=== PATIENT | male | born 1930 | race Asian ===

== ENCOUNTER 2017-10-02 20:00 | Inpatient (IN) | payer MEDICARE, MEDICAID ==
[~2017-10-02] VITALS: Ht 160 cm; Wt 66.9 kg
--- NOTE | 2017-10-02 20:15 | NUR ---
GPS NOTE. RECEIVED PT. DIRECTLY FROM [facility]. PT. ARRIVED ON THE UNIT AT 2014 VIA STRETCHER. PATIENT ADMITTED ON A 5150 HOLD DUE TO GD AND DTO. PER HOLD PT. WAS DISORGONAIZED, CONFUSED AND AGITATED, EXHIBITING UNUSUAL BEHAVIORS. THE 5150 WAS RECEIVED AND THE DOCUMENTATION APPEARS TO REFLECT THE PRESENTATION OF THE PATIENT. PATIENT IS CURRENTLY LAYING IN BED AWAKE, HAS NO S/S OE COMPLAINTS OF PAIN AT THIS TIME. NO SIGNS OF ACUTE DISTRESS NOTED AT THIS TIME. PATIENT'S BREATHING IS UNLABORED WITH EQUAL FALL AND RISE OF THE CHEST. PATIENT IS ORIENTED X1 ON ROOM AIR. PATIENT HAS BEEN ASSISTED WITH TURNING AND REPOSITIONING Q2HRS AND PRN FOR COMFORT AND CIRCULATION. THE PATIENT IS NOTED TO BE DEPRESSED, WITHDRAWN, DISORGANIZED, AGITATED AND ANXIOUS AT THIS TIME. UNABLE TO ASSESS SI/HI DUE TO LANGUAGE BARRIER. PT. REFUSED SKIN ASSESSMENT BUT A SIGNIFIVCANT BRUISE IS NOTED ON THE R SIDE OF PT'S FACE, A BANDAGE IS ALSO COVERING THE PT'S L KNEE. THE PATIENT IS UNDER THE CARE OF DR. PRADO AND THE MEDICAL CARE OF DR. REYNOSO. THE PATIENT'S BELONGING WERE INVENTORIED AND CHECKED FOR CONTRABANDS. PATIENT'S ADVANCED DIRECTIVE PREFERENCES, IMMUNIZATIONS QUESTIONNAIRE AND NECESSARY PAPERWORK ARE COMPLETED AND PLACED IN THE PT'S CHART. PATIENT WAS ORIENTED TO THE ROOM, FLOOR AND STAFF. EDUCATED PT. ON THE USAGE OF THE CALL MAYNARD. BED IS LOCKED AND LOW, BEDSIDES RAILS ARE UP X2 FOR SAFETY. WILL CONTINUE TO MONITOR Q15MNS, WITH THE HELP OF STAFF, FOR SAFETY.
[2017-10-02] MEDS ORDERED: MAG HYDROX/AL HYDROX/SIMETH 30 ML UDC PO PRN (21:30)
[2017-10-02] MEDS ORDERED: ACETAMINOPHEN 325 MG TABLET PO PRN (21:30)
[2017-10-02] MEDS ORDERED: MAGNESIUM HYDROXIDE 30 ML UDC PO PRN (21:30)
[2017-10-02] MEDS ORDERED: TEMAZEPAM 7.5 MG CAPSULE PO PRN (23:30)
[2017-10-02] MEDS ORDERED: LORAZEPAM 0.5 MG TABLET PO PRN (23:30)
[2017-10-03] MEDS ORDERED: ALLO300T2 PO (02:22)
[2017-10-03] MEDS ORDERED: COLC0.6C3 PO (02:22)
[2017-10-03] MEDS ORDERED: TAMS0.4C34 PO (02:22)
[2017-10-03] MEDS ORDERED: HYDR-552 PO (02:22)
[2017-10-03] MEDS ORDERED: INSU100V SQ (02:22)
[2017-10-03] MEDS ORDERED: HYDR-4075 PO (02:22)
[2017-10-03] MEDS ORDERED: AMIT50TA3 PO (02:22)
[2017-10-03] MEDS ORDERED: LOSA50TA21 PO (02:22)
[2017-10-03 08:00] VITALS: BP 145/92
[2017-10-03 09:01] LABS: ALANINE AMINOTRANSFERASE 49 U/L (12-78); ALBUMIN 3.7 g/dL (3.4-5.0); ALKALINE PHOSPHATASE 104 U/L (46-116); ASPARTATE AMINOTRANSFERASE 34 U/L (15-37); CARBON DIOXIDE 22 mmol/L (21-32); CHLORIDE 104 mmol/L (98-107); CREATININE 1.3 mg/dL (0.6-1.3); GLUCOSE 173 mg/dL (74-106); POTASSIUM 3.9 mmol/L (3.5-5.1); SODIUM SERUM 136 mmol/L (136-145); UREA NITROGEN, BLOOD 23 mg/dL (7-18)
[2017-10-03 09:04] LABS: CHOLESTEROL 113 mg/dL (<200); HDL CHOLESTEROL 39 mg/dL (40-60); LDL 68 mg/dL (0-99); TRIGLYCERIDES 102 mg/dL (30-150)
[2017-10-03] MEDS ORDERED: DEXTROSE 50%-WATER 50 ML DISP.SYRIN IV PRN (15:30)
[2017-10-03 16:00] VITALS: BP 134/83
[2017-10-03] MEDS: BLOOD SUGAR DIAGNOSTIC 1 EACH STRIP IN SCH ×2 (17:27→21:57)
[2017-10-03 20:23] VITALS: BP 144/90
[2017-10-03] MEDS: HALOPERIDOL 1 MG TABLET PO SCH (20:32)
[2017-10-03] MEDS: RIVASTIGMINE TARTRATE 1.5 MG CAPSULE PO SCH (20:32)
[2017-10-04 08:00] VITALS: BP 132/74
[2017-10-04] MEDS: RIVASTIGMINE TARTRATE 1.5 MG CAPSULE PO SCH ×2 (08:34→16:37)
[2017-10-04] MEDS: HALOPERIDOL 1 MG TABLET PO SCH ×3 (08:34→16:37)
[2017-10-04] MEDS: BLOOD SUGAR DIAGNOSTIC 1 EACH STRIP IN SCH ×4 (08:34→21:46)
--- NOTE | 2017-10-04 15:23 | NUR ---
SW attempted to use the [email or web address] phone (chef kitchen manager phone) to communicate with the pt but he was so confused and disoriented that the SW was unable to attain any information for the assessment.
[2017-10-04 16:12] VITALS: BP 129/80
--- NOTE | 2017-10-04 16:30 | NUR ---
GPS/RN DR RAMIREZ AWARE OF NEED TO RECONCILE MEDS IN SYSTEM.
--- NOTE | 2017-10-04 18:16 | NUR ---
GPS/RN BLOOD SUGAR WNL THROUGHOUT SHIFT( 121,118,105) . NO COVERAGE NEEDED.
[2017-10-04 20:00] VITALS: BP 134/86
[2017-10-04] MEDS ORDERED: hydrALAZINE HCL 10 MG TABLET PO PRN (20:30)
[2017-10-04] MEDS ORDERED: HYDROCODONE/APAP 5/325MG 1 EACH TABLET PO PRN (20:30)
[2017-10-04] MEDS: TAMSULOSIN 0.4 MG CAP.SR.24H PO SCH (21:32)
--- NOTE | 2017-10-04 21:47 | NUR ---
ACCUCHECK 102 MG/DL, NO INSULIN DUE AT THIS TIME.
[2017-10-05] MEDS: BLOOD SUGAR DIAGNOSTIC 1 EACH STRIP IN SCH ×4 (07:18→21:22)
[2017-10-05 08:28] VITALS: BP 130/84
[2017-10-05] MEDS: COLCHICINE 0.6 MG TABLET PO SCH ×2 (08:29→16:06)
[2017-10-05] MEDS: HALOPERIDOL 1 MG TABLET PO SCH ×3 (08:29→16:06)
[2017-10-05] MEDS: RIVASTIGMINE TARTRATE 1.5 MG CAPSULE PO SCH ×2 (08:29→16:06)
[2017-10-05] MEDS: ALLOPURINOL 100 MG TABLET PO SCH (08:29)
[2017-10-05] MEDS: LOSARTAN POTASSIUM 50 MG TABLET PO SCH (08:29)
[2017-10-05] MEDS: INSULIN REGULAR, HUMAN 100 UNIT/ML 3 ML VIAL SQ PRN ×3 (08:32→21:36)
--- NOTE | 2017-10-05 10:18 | NUR ---
Pt currently resides at [address] [place] [id number] ([phone]). [facility] is requesting the SW look into SNF placements for the pt. JAI will work with the DPOA, pt and MD regarding appropriate discharge plans. SW will form a safe and proper discharge. Addendum: 10/05/17 at 1018 by ABELARDO VERGARA Initial Discharge Plan
--- NOTE | 2017-10-05 11:29 | NUR ---
SW spoke to the pt's daughter and DPOA, Carmelina Torres ([phone]), and conducted the remainder of the assessment that was unattainable by the pt.
--- NOTE | 2017-10-05 11:31 | NUR ---
JAI spoke to the OA, Carmelina Torres's ([phone]), office administrative assistant at [phone] and asked her to fax the OA paperwork for the SW to put in the chart.
[2017-10-05 16:21] VITALS: BP 134/56
[2017-10-05 20:00] VITALS: BP 142/76
[2017-10-05] MEDS: TAMSULOSIN 0.4 MG CAP.SR.24H PO SCH (21:15)
--- NOTE | 2017-10-05 21:23 | NUR ---
ACCUCHECK 177 MG/DL.
--- NOTE | 2017-10-06 07:04 | NUR ---
PATIENT CALM AND QUIET, COOPERATIVE LAST NIGHT.
[2017-10-06] MEDS: BLOOD SUGAR DIAGNOSTIC 1 EACH STRIP IN SCH ×4 (07:37→22:00)
[2017-10-06 08:00] VITALS: BP 103/64
[2017-10-06] MEDS: RIVASTIGMINE TARTRATE 1.5 MG CAPSULE PO SCH ×2 (08:24→17:00)
[2017-10-06] MEDS: ALLOPURINOL 100 MG TABLET PO SCH (08:25)
[2017-10-06] MEDS: HALOPERIDOL 1 MG TABLET PO SCH ×3 (08:25→17:01)
[2017-10-06] MEDS: LOSARTAN POTASSIUM 50 MG TABLET PO SCH (08:26)
[2017-10-06] MEDS: COLCHICINE 0.6 MG TABLET PO SCH ×2 (08:32→17:00)
[2017-10-06] MEDS: INSULIN REGULAR, HUMAN 100 UNIT/ML 3 ML VIAL SQ PRN ×2 (08:34→12:23)
[2017-10-06 16:12] VITALS: BP 114/71
[2017-10-06 20:00] VITALS: BP 118/80
[2017-10-06] MEDS: TAMSULOSIN 0.4 MG CAP.SR.24H PO SCH (21:33)
--- NOTE | 2017-10-07 01:24 | NUR ---
Pt has been selectively mute mostly, answering "yes/no" only, anxious at times, & with flat affect but compliant with meds/Accuchecks w/o any promptings.
--- NOTE | 2017-10-07 01:53 | NUR ---
Pt's blood sugar level last night was 119 mg/dl & no Insulin was given per MD order.
[2017-10-07] MEDS: BLOOD SUGAR DIAGNOSTIC 1 EACH STRIP IN SCH ×4 (07:31→22:30)
--- NOTE | 2017-10-07 07:45 | NUR ---
GPS RN NOTE: PATIENT ACCUCHECK WAS 171 MG/DL. 3 UNITS REGULAR INSULIN PER SLIDING SCALE ADMINISTERED SQ.
[2017-10-07 08:00] VITALS: BP 128/80
[2017-10-07] MEDS: INSULIN REGULAR, HUMAN 100 UNIT/ML 3 ML VIAL SQ PRN ×2 (08:15→17:29)
[2017-10-07] MEDS: COLCHICINE 0.6 MG TABLET PO SCH ×2 (09:10→16:51)
[2017-10-07] MEDS: RIVASTIGMINE TARTRATE 1.5 MG CAPSULE PO SCH ×2 (09:10→16:51)
[2017-10-07] MEDS: HALOPERIDOL 1 MG TABLET PO SCH ×3 (09:11→16:51)
[2017-10-07] MEDS: ALLOPURINOL 100 MG TABLET PO SCH (09:11)
[2017-10-07] MEDS: LOSARTAN POTASSIUM 50 MG TABLET PO SCH (09:11)
--- NOTE | 2017-10-07 09:57 | NUR ---
GPS RN NOTE: PT. AWAKE AND GROOMED IN MORNING, ATE 100% BREAKFAST, MED COMPLAINT. REMAINS ISOLATIVE BUT PRESENT ON UNIT AT TIMES. ANSWERS YES/NO ONLY. FLAT AFFECT, COOPERATIVE AND CURRENTLY SLEEPING IN NO APPARENT DISTRESS.
[2017-10-07 16:12] VITALS: BP 118/88
[2017-10-07 20:07] VITALS: BP 117/71
[2017-10-07] MEDS: TAMSULOSIN 0.4 MG CAP.SR.24H PO SCH (21:46)
--- NOTE | 2017-10-07 22:31 | NUR ---
ACCUCHECK 110 MG/DL, NO INSULIN DUE AT THIS TIME
--- NOTE | 2017-10-08 07:35 | NUR ---
ACCUCHECK 122 MG/DL AT 0730 , NO INSULIN DUE AT THIS TIME
[2017-10-08] MEDS: BLOOD SUGAR DIAGNOSTIC 1 EACH STRIP IN SCH ×4 (07:42→22:02)
[2017-10-08 08:00] VITALS: BP 95/63
--- NOTE | 2017-10-08 08:00 | NUR ---
GPS RN NOTE: RECEIVED PATIENT AWAKE AND SITTING IN BED NO S/S OR COMPLAINTS OF PAIN AT THIS TIME. PATIENT DISPLAYING NO S/S OF APPARENT DISTRESS AT THIS TIME. PATIENT BREATHING IS UNLABORED WITH EQUAL RISE AND FALL OF THE CHEST. PATIENT ALERT AND ORIENTED X 1-2. FLAT AFFECT AND STARES AT WALL. PT COOPERATIVE AND MED COMPLIANT. PATIENT DENIES SUICIDE IDEATIONS AND HOMICIDAL IDEATIONS AT THIS TIME. PATIENT IS AMBULATORY AND HAS NO OTHER NEEDS AT THIS TIME. PATIENT EDUCATED ON THE USE OF THE CALL MAYNARD. PATIENT BED SIDE RAILS UP X2 FOR SAFETY, BED IS LOCKED AND LOW WILL CONTINUE TO MONITOR AND MAINTAIN AND MAINTAIN SAFETY.
[2017-10-08] MEDS: RIVASTIGMINE TARTRATE 1.5 MG CAPSULE PO SCH ×2 (08:13→16:53)
[2017-10-08] MEDS: ALLOPURINOL 100 MG TABLET PO SCH (08:13)
[2017-10-08] MEDS: HALOPERIDOL 1 MG TABLET PO SCH ×3 (08:14→16:53)
[2017-10-08] MEDS: LOSARTAN POTASSIUM 50 MG TABLET PO SCH (08:15)
[2017-10-08] MEDS: COLCHICINE 0.6 MG TABLET PO SCH ×2 (08:27→16:54)
--- NOTE | 2017-10-08 11:00 | NUR ---
GPS RN NOTE: PER CALENDERING MACHINE OPERATOR APPROVAL, PATIENT DAUGHTER AND SON IN LAW VISITED PATIENT AND WERE GIVEN UPDATES. PATIENT WAS GIVEN [place] NEWS PAPERS TO READ. HAPPY TO SEE FAMILY AND SMILING.
--- NOTE | 2017-10-08 11:27 | NUR ---
JAI met with the pt's daughter and DPOA, Carmelina Torres ([phone]) and her who came to visit the pt. JAI informed them that referrals are being sent out for the pt to go to a nursing facility.
[2017-10-08] MEDS: INSULIN REGULAR, HUMAN 100 UNIT/ML 3 ML VIAL SQ PRN (12:01)
--- NOTE | 2017-10-08 13:19 | NUR ---
JAI faxed a referral for a SNF to [facility] ([phone]).
[2017-10-08 16:00] VITALS: BP 138/77
--- NOTE | 2017-10-08 17:20 | NUR ---
RN GPS OVERFLOW: RECEIVED PT FROM YUE RN GPS OVERFLOW PT. IN ROOM 105. LEFT MESSAGE WITH DAUGHTER REGARDING PT'S SAFE TRANSFER AND ROOM NUMBER. CURRENTLY HAS 1:1 SITTER. BELONGINGS WITH PT AT BEDSIDE. PRYDEINIG SPEAKING ONLY. IN NO APPARENT DISTRESS. WILL CONTINUE TO MONITOR.
--- NOTE | 2017-10-08 17:22 | NUR ---
RECEIVED ORDERS TO TRANSFER PATIENT TO [facility]. PATIENT TRANSFERRED VIA WHEELCHAIR TO ROOM 105 IN [facility] AT 1715. REPORT GIVEN TO AD YANCEY AND NEW 1:1 SITTER. [facility]. PATIENT CALM, COOPERATIVE, AND NO APPARENT DISTRESS. AD YANCEY WILL NOTIFY PATIENT DAUGHTERELENA OF PATIENT NEW ROOM AND TRANSFER.
--- NOTE | 2017-10-08 18:30 | NUR ---
RN GPS OVERFLOW END NOTES: PT REMAINS IN BED, AWAKE AND WATCHING TV. BED IN LOW, LOCKED POSITION, SIDE RAILS UP, BED ALARM ON. 1:[address] ORDERED[address] PT ONLY THAI SPEAKING. ACCU CHECK WAS DONE AT 1730 WITH NO INSULIN COVERAGE NEEDED. PER RN REPORT, PT IS AMBULATORY WITH ASSISTANCE NEEDED. REGULAR DIET AND SWALLOWS PILLS WHOLE. NO EPISODES OF ATTEMPTING TO GET OUT OF BED ON HIS OWN OR ACTING OUT. WILL ENDORSE TO PM SHIFT RN FOR CONTINUITY OF CARE.
--- NOTE | 2017-10-08 19:20 | NUR ---
GPS RN NOTE DR MONTGOMERY CAME TO VISITED THE PT. AND INFORMED US THAT PT IS GOING TO BE DISCHARGE TOMORROW.
[2017-10-08 20:00] VITALS: BP 126/69
[2017-10-08 20:20] VITALS: BP 116/69
--- NOTE | 2017-10-08 20:20 | NUR ---
GPS RN NOTE PT BROUGHT TO 2ND FLOOR TO GPS OVERFLOW ON W/C TO ROOM 205-1 PER CHARGE NURSE. PT IN NO DISTRESS OR DISCOMFORT NOTED. ALL THE BELONGINGS ALSO BROUGHT WITH THE PT.
[2017-10-08] MEDS: TAMSULOSIN 0.4 MG CAP.SR.24H PO SCH (21:08)
[2017-10-09] MEDS: BLOOD SUGAR DIAGNOSTIC 1 EACH STRIP IN SCH ×2 (07:33→12:12)
[2017-10-09 08:00] VITALS: BP 124/69
[2017-10-09 09:25] VITALS: BP 125/68
[2017-10-09] MEDS: COLCHICINE 0.6 MG TABLET PO SCH (09:25)
[2017-10-09] MEDS: HALOPERIDOL 1 MG TABLET PO SCH ×2 (09:25→12:13)
[2017-10-09] MEDS: LOSARTAN POTASSIUM 50 MG TABLET PO SCH (09:25)
[2017-10-09] MEDS: ALLOPURINOL 100 MG TABLET PO SCH (09:25)
[2017-10-09] MEDS: RIVASTIGMINE TARTRATE 1.5 MG CAPSULE PO SCH (09:25)
--- NOTE | 2017-10-09 10:09 | NUR ---
GPS RN NOTES PT GIVEN TO AD WILCOX FOR EZ
[2017-10-09] MEDS: INSULIN REGULAR, HUMAN 100 UNIT/ML 3 ML VIAL SQ PRN (12:27)
--- NOTE | 2017-10-09 13:35 | NUR ---
Per [facility] ([phone]), pt was accepted to [facility].
--- NOTE | 2017-10-09 14:13 | NUR ---
JAI spoke to the pt's daughter and DPOA, Carmelina Torres ([phone]), and informed her that the pt will be discharging today at 4pm to [facility].
--- NOTE | 2017-10-09 16:15 | NUR ---
GPS/RN-NOTES PATIENT WAS DISCHARGE TO [facility] TODAY. DR. PRADO AND DR. RUCKER AWARE AND AGREES OF PATIENT DISCHARGE WITH ORDERS. REPORT WAS GIVEN TO JOSIAH (FACILITY ADMISSION NURSE). PATIENT DID NOT VERBALIZE SI/HI,DENIES VISUAL/AUDITORY HALLUCINATIONS AT THE TIME OF DISCHARGE. PATIENT LEFT THE UNIT IN STABLE CONDITION ALERT ORIENTED X3 WITH ALL HIS BELONGINGS INCLUDING X1 WRIST WATCH ( WITH PATIENT). PLATE PAINTER APPRENTICE BY THE AMBULANCE VIA GURNEY WITH TWO STAFF ASSIST. PER SW NOTES PATIENT DAUGHTER AND ANDREWS BENAVIDES MADE AWARE OF THE DISCHARGE .
--- NOTE | 2017-10-09 16:21 | NUR ---
Discharge Note: Pt was discharged to [facility] located at [address] [place] [id number]; ([phone]). Pt will be transported via [facility] (Trip #[id number]) at 4:00 PM and will be in room 6B. Pt denied suicidal and homicidal ideation as well as visual and auditory hallucinations. Pts mood and affect are calm and euthymic. The pt was agreeable to the discharge plan and the pts daughter and DPOA, Carmelina Torres ([phone]) agreed as well. Pt will be under the care of Dr. Escobar who is located at [address] [facility] [address], [place] [address]; ) and her naturalist will be Dr. Garner who is located at [address] [place] [phone]; ).
== END 2017-10-09 16:15 | DRG 885 ==
LOC: GPS 20:00 → GPSOV1 10-08 17:09 → GPSOV2 10-08 20:13
PROVIDERS: ADMIT Psychiatry & Neurology Psychiatry; ATTEND Psychiatry & Neurology Psychiatry
DX: F29 Unspecified psychosis not due to a substance or known physiological condition (principal); F41.9 Anxiety disorder, unspecified; E11.9 Type 2 diabetes mellitus without complications; F03.90 Unspecified dementia, unspecified severity, without behavioral disturbance, psychotic disturbance, mood disturbance, and anxiety; Z73.6 Limitation of activities due to disability; M10.9 Gout, unspecified; N40.0 Benign prostatic hyperplasia without lower urinary tract symptoms; H91.90 Unspecified hearing loss, unspecified ear
CPT/HCPCS: 36415; 80053-TC; 80061-TC; 82962-TC; 87081-TC; J1815; Z7610